=== PATIENT | male | born 1995 | race Caucasian/White ===

== ENCOUNTER 2016-05-24 22:32 | Emergency (ER) | payer MEDICAID ==
--- NOTE | 2016-05-25 04:53 | ER ---
ADMIT: 05/24/2016 RM/LOC: ER [facility] MR#: [id number] [facility] [address] [place], [place] [id number] AMAYA MISHRA PACER [address] [place] [address] Emergency Room Report SEX: M AGE: 20 : 1995 DATE: 05/24/2016 The patient is a 20-year-old male, who overdosed on 15 of 500 mg naproxen, unknown quantity acetaminophen and aspirin in the form of Excedrin on Saturday. Shortly after midnight, developed abdominal pain within 3 hours, had protracted vomiting up until afternoon. Denies any hematemesis, diarrhea, or melena. States he was despondent because he got laid off, contracted herpes and had a relationship that did not die turner well. Denies any prior history of suicide or family history of suicide. Does admit to some acute sleep disturbance. Denies any weight loss or gain. Exam remarkable for nontoxic, afebrile male. Clear speech and sensorium. Good eye contact, grooming. No delusions, hallucinations, or active suicidal ideation or plan. [facility] interviewed and deemed he was safe to be discharged. Arrangements were made with family in [place] to check-in on him and advised to follow up with [facility]. The patient was in agreement and agreed to return if he had suicidal ideation. Ori Ojeda MD/ ramiro JOB #: [id number] CC: Ori Ojeda MD, Attending Physician Agnes Ham MD, Family Physician Agnes Ham MD
--- NOTE | 2016-05-25 10:29 | NUR ---
Received SAD person referral. Called and spoke with pt. Pt states he lives in [place] with some friends. Denies current thoughts of self harm and denies a plan. Jordon has the information to [facility]. Encouraged Jordon to call and make an appt. Deny any needs at this time.
== END 2016-05-25 01:44 | disposition home or self-care (01) ==
LOC: ER 22:32
DX: R45.851 Suicidal ideations (principal); Z88.8 Allergy status to other drugs, medicaments and biological substances